=== PATIENT | female | born 1950 ===

== ENCOUNTER → 2022-05-08 | Outpatient (CLI) | payer BC | LOC: PLD 14:07 → LAB SHORT 14:07 → EDBD 14:07 | DX: L90.5 Scar conditions and fibrosis of skin (principal); L97.515 Non-pressure chronic ulcer of other part of right foot with muscle involvement without evidence of necrosis; G58.8 Other specified mononeuropathies; I73.9 Peripheral vascular disease, unspecified; G83.9 Paralytic syndrome, unspecified; M20.21 Hallux rigidus, right foot | CPT/HCPCS: 88305; 88311; 88312 ==